=== PATIENT | female | born 1965 | race Caucasian/White ===

== ENCOUNTER 2016-06-30 10:22 | Emergency (ER) | payer OTHER ==
[~2016-06-30] VITALS: Ht 157.5 cm; Wt 68.8 kg
[~2016-06-30 10:22] MED LIST: ALPR-411 PO; BCPILLS PO; LVXUNK
[2016-06-30 10:41] VITALS: TEMP 36.6; Ht 157.5 cm; Wt 68.8 kg
[2016-06-30] MEDS ORDERED: FAMO20TA9 PO (11:05)
[2016-06-30] MEDS ORDERED: SERT50TA PO (11:05)
[2016-06-30] MEDS ORDERED: DICY20TA10 PO (11:05)
[2016-06-30] MEDS ORDERED: FLUT0.15 INH (11:05)
[2016-06-30] MEDS ORDERED: NUTRTAB40 PO (11:05)
[2016-06-30] MEDS ORDERED: TRAM-10 PO (11:05)
[2016-06-30] MEDS ORDERED: IBUP-1050 PO (11:05)
[2016-06-30] MEDS ORDERED: LEVO50TA PO (11:05)
[2016-06-30] MEDS ORDERED: RIFA150C15 PO (11:05)
[2016-06-30] MEDS ORDERED: OXYCODONE/ACETAMINOPHEN 5-325 TAB PO STA (11:16)
[2016-06-30 11:32] LABS: BASO % 0.4 %; BASO ABS # 0.02 K/uL (0-0.2); EOS % 0.6 %; HEMATOCRIT 35.7 % (37-47); IG% 0.4 %; LYMPH % 19.3 %; LYMPH ABS # 1.04 K/uL (1.2-3.4); MEAN CELL VOLUME 69.2 fL (80-100); MEAN CORPUSCULAR HEMOGLOBIN 21.1 pg (25-34); MEAN CORPUSCULAR HGB CONC 30.5 g/dl (32-36); MEAN PLATELET VOLUME 9.4 fL (7.4-10.4); MONO % 8.3 %; PLATELET COUNT 233 K/uL (130-400); RED BLOOD COUNT 5.16 M/uL (4.2-5.4)
[2016-06-30 11:46] LABS: ALT/SGPT 22 U/L (12-78); AST/SGOT 13 U/L (15-37); BLOOD UREA NITROGEN 16 mg/dl (7-18); BUN/CREATININE RATIO 22.2 (10-20); CALCIUM 9.2 mg/dl (8.5-10.1); CARBON DIOXIDE 29 mmol/L (21-32); CHLORIDE 107 mmol/L (98-107); CREATININE 0.73 mg/dl (0.60-1.20); GLUCOSE 124 mg/dl (70-99); POTASSIUM 3.8 mmol/L (3.5-5.1); SODIUM 141 mmol/L (136-145)
--- NOTE | 2016-06-30 11:54 | DIAGNOSTIC IMAGING REPORT ---
SINGLE VIEW CHEST CLINICAL HISTORY: Hypertension. FINDINGS: An AP, portable, upright chest radiograph is compared to study dated 02/04/2016. The examination is degraded by portable technique and patient rotation. The cardiomediastinal silhouette is unremarkable. Chronic interstitial thickening is similar to previous. The lungs and pleural spaces are clear. No pneumothorax is seen. The bony thorax is grossly intact. IMPRESSION: No active disease in the chest. Electronically signed by: Danilo Wall M.D. 06/30/2016 11:52 AM Dictated Date/Time: 06/30/2016 11:52 AM
[2016-06-30 11:56] LABS: ALKALINE PHOSPHATASE 77 U/L (45-117)
[2016-06-30 11:59] LABS: ANISOCYTOSIS PRESENT; COMPLETE YES; MICROCYTOSIS PRESENT
--- NOTE | 2016-06-30 12:05 | EMERGENCY ROOM VISIT NOTE ---
History First contact with patient: 11:00 Chief Complaint: HYPERTENSION Stated Complaint: HIGH BLOOD PRESSURE History of Present Illness The patient is a 51 year old female who presents to the Emergency Room with complaints of head pressure. The patient reports that over the past few days, she has noticed that her blood pressure has been higher than normal. 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 She states that she saw the chiropractor yesterday and they took her blood pressure, which was found to be elevated at 180/110. She reports that they did retake it and it had decreased to 160/110. She states that she took her blood pressure at home this morning and it was 147/ 95. She states that she retook it a few hours later and it was 178/112. The patient does not have a history of hypertension and states this is abnormal for her. However, she does report a history of high blood pressure readings after her . The patient states she has had headaches off and on but denies any headache at this time. She denies chest pain, but states that her heart "beats funny" once in a while. She states that she does have chronic low back pain and since flaring up it has been radiating into the left hip. She takes tramadol daily which is prescribed by her primary care provider. She has also been taking ibuprofen but states that these medications have not relieved the pain. The patient has a history of hypothyroidism and denies any other chronic medical conditions. She denies fevers/chills, recent illness, chest pain, shortness of breath, nausea, vomiting or abdominal pain. She denies any numbness or weakness in her extremities. Review of Systems A complete 10-point Review of Systems was discussed with the patient, with pertinent positives and negatives listed in the History of Present Illness. All remaining Review of Systems questions can be considered negative unless otherwise specified. Social History Smoking Status: Never Smoker Current/Historical Medications Scheduled Dicyclomine Hcl (Dicyclomine Hcl), 20 MG PO BID Famotidine (Pepcid), 1 TAB PO BID Fluticasone Propionate (Nasal) (Flonase Allergy Relief), 1 PUFF INH DAILY Levothyroxine Sodium (Synthroid), 1 TAB PO DAILY Methylprednisolone (Medrol Dosepak), 0 PO DAILY Nutritional Supplements (Estroven), 1 TAB PO DAILY Rifampin (Rifadin), 2 TABS PO DAILY Sertraline (Zoloft), 50 MG PO DAILY Scheduled PRN Alprazolam (Xanax), 0.5 MG PO TID PRN for Anxiety Hydrocodone/Acetaminophen 5MG/325MG (Solon 5MG/325MG), 1-2 TABLET PO Q4H PRN for Pain Ibuprofen (Advil), 200-600 MG PO Q4H PRN for Pain Tramadol (Ultram), 50 MG PO QAM PRN for Pain Allergies Coded Allergies: No Known Allergies (Unverified , 06/30/16) Physical Exam Vital Signs Date Time Temp Pulse Resp B/P Pulse Ox O2 Delivery O2 Flow Rate FiO2 06/30/16 12:26 77 16 114/85 98 Room Air 06/30/16 12:00 70 18 114/80 100 06/30/16 11:31 140/99 06/30/16 11:25 142/97 06/30/16 10:41 36.6 97 18 160/101 98 Room Air Physical Exam VITALS: Vitals are noted on the nurse's note and reviewed by myself. Vital signs stable. GENERAL: This is a 51-year-old female, in no acute distress, nondiaphoretic, well-developed well-nourished. HEAD: Normocephalic atraumatic. EARS: External auditory canals clear, tympanic membranes pearly manuel without erythema or effusion bilaterally. EYES: Pupils equal round and reactive to light and accommodation. Conjunctivae without injection, sclerae without icterus. Extraocular movements intact. MOUTH: Mucous membranes moist. Tonsils are not enlarged. Pharynx without erythema or exudate. NECK: Supple without nuchal rigidity. No lymphadenopathy. HEART: Regular rate and rhythm without murmurs gallops or rubs. LUNGS: Clear to auscultation bilaterally without wheezes, rales or rhonchi. MUSCULOSKELETAL: There is mild tenderness to palpation of the left lumbar paraspinous muscles. No muscle spasms palpable. Full range of motion of bilateral lower extremities. Strength 5/5. NEURO: Patient was alert and oriented to person place and time. Normal sensation to light and sharp touch. Medical Decision & Procedures ER Provider Diagnostic Interpretation: SINGLE VIEW CHEST FINDINGS: An AP, portable, upright chest radiograph is compared to study dated 02/04/2016. The examination is degraded by portable technique and patient rotation. The cardiomediastinal silhouette is unremarkable. Chronic interstitial thickening is similar to previous. The lungs and pleural spaces are clear. No pneumothorax is seen. The bony thorax is grossly intact. IMPRESSION: No active disease in the chest. Laboratory Results 06/30/16 11:20 Red Blood Count 5.16, Mean Corpuscular Volume 69.2, Mean Corpuscular Hemoglobin 21.1, Mean Corpuscular Hemoglobin Concent 30.5, Mean Platelet Volume 9.4, Neutrophils (%) (Auto) 71.0, Lymphocytes (%) (Auto) 19.3, Monocytes (%) (Auto) 8.3, Eosinophils (%) (Auto) 0.6, Basophils (%) (Auto) 0.4, Neutrophils # (Auto) 3.84, Lymphocytes # (Auto) 1.04, Monocytes # (Auto) 0.45, Eosinophils # (Auto) 0.03, Basophils # (Auto) 0.02 06/30/16 11:20 Test 06/30/16 11:20 White Blood Count 5.40 K/uL (4.8-10.8) Red Blood Count 5.16 M/uL (4.2-5.4) Hemoglobin 10.9 g/dL (12.0-16.0) Hematocrit 35.7 % (37-47) Mean Corpuscular Volume 69.2 fL (80-100) Mean Corpuscular Hemoglobin 21.1 pg (25-34) Mean Corpuscular Hemoglobin Concent 30.5 g/dl (32-36) Platelet Count 233 K/uL (130-400) Mean Platelet Volume 9.4 fL (7.4-10.4) Neutrophils (%) (Auto) 71.0 % Lymphocytes (%) (Auto) 19.3 % Monocytes (%) (Auto) 8.3 % Eosinophils (%) (Auto) 0.6 % Basophils (%) (Auto) 0.4 % Neutrophils # (Auto) 3.84 K/uL (1.4-6.5) Lymphocytes # (Auto) 1.04 K/uL (1.2-3.4) Monocytes # (Auto) 0.45 K/uL (0.11-0.59) Eosinophils # (Auto) 0.03 K/uL (0-0.5) Basophils # (Auto) 0.02 K/uL (0-0.2) RDW Standard Deviation 49.7 fL (36.4-46.3) RDW Coefficient of Variation 20.0 % (11.5-14.5) Immature Granulocyte % (Auto) 0.4 % Immature Granulocyte # (Auto) 0.02 K/uL (0.00-0.02) Anisocytosis PRESENT Microcytosis PRESENT Anion Gap 5.0 mmol/L (3-11) Est Creatinine Clear Calc Drug Dose 81.0 ml/min Estimated GFR () 109.0 Estimated GFR (Non- 94.0 BUN/Creatinine Ratio 22.2 (10-20) Calcium Level 9.2 mg/dl (8.5-10.1) Total Bilirubin 0.2 mg/dl (0.2-1) Aspartate Amino Transf (AST/SGOT) 13 U/L (15-37) Alanine Aminotransferase (ALT/SGPT) 22 U/L (12-78) Alkaline Phosphatase 77 U/L (45-117) Troponin I < 0.015 ng/ml (0-0.045) Total Protein 8.6 gm/dl (6.4-8.2) Albumin 4.2 gm/dl (3.4-5.0) Globulin 4.4 gm/dl (2.5-4.0) Albumin/Globulin Ratio 1.0 (0.9-2) Thyroid Stimulating Hormone (TSH) 16.300 uIu/ml (0.300-4.500) Medications Administered Medications (Trade) Dose Ordered Sig/Herlinda Route Start Time Stop Time Status Last Admin Dose Admin Oxycodone/ Acetaminophen (Percocet 5-325mg Tab) 1 tab NOW STAT PO 06/30/16 11:16 06/30/16 11:18 DC 06/30/16 11:32 1 TAB ECG Rate (beats per minute): 82 Rhythm: normal sinus Findings: no acute ischemic change, no ectopy Comparison ECG Date: no prior available Medical Decision Differential diagnosis includes hypertensive urgency, hypertensive emergency, acute exacerbation of chronic low back pain, anxiety, among others. The patient was evaluated as above. Labs were drawn and IV access was obtained. Imaging studies were performed and read by radiology as above. The patient was medicated with one tablet of Percocet for her back pain. The patient was reassessed multiple times during their stay in the emergency department and remained in stable condition. The patient is a 51-year-old female who presents today complaining of hypertension. The patient has had increased low back pain over the past few weeks. I do feel that her hypertension is likely secondary to anxiety and her back pain. Labs revealed no leukocytosis. There was a mild anemia and the patient was encouraged to follow up with her primary care provider regarding this. Patient's TSH was found to be elevated at 16. She may need her Synthroid adjusted and was encouraged to follow up with her PCP for this as well. EKG was unremarkable. Troponin was not elevated. The patient's blood pressure improved from 160/100 on arrival to 114/85 after treatment of her back pain. She will be treated as an outpatient with pain medication for her back pain. I did recommend that she follow-up closely for monitoring of her blood pressure. She will return here for any new symptoms or any symptoms. Based on the patient's presentation, lab results, and imaging studies, I feel the patient is stable for outpatient treatment. The patient's case was reviewed with Dr. Ott, ED attending physician, who agreed with my assessment and treatment plan. Discharge instructions were reviewed with the patient. The patient verbalized understanding of my assessment and treatment plan and was discharged home in good condition. [place] Drug Monitoring Program Search Results: patient reviewed within database, no issues identified Impression Primary Impression: Low back pain Departure Information Dispostion Home / Self-Care Condition GOOD Prescriptions Methylprednisolone (MEDROL DOSEPAK) 4 Mg Kiel 0 PO DAILY, #1 PKT Prov: Yeni Pinzon PA-C 06/30/16 Hydrocodone/Acetaminophen 5MG/325MG (Solon 5MG/325MG) Tab 1-2 TABLET PO Q4H Y for Pain, #10 TAB For Initial Treatment Prov: Yeni Pinzon PA-C 06/30/16 Referrals Vielka House D.O. (PCP) Patient Instructions My [facility] Additional Instructions You were evaluated in the emergency department today for high blood pressure and back pain. You have been prescribed Solon to be used for pain control. Take 1-2 tablets every 4-6 hours as needed for pain. This is a narcotic medication. You cannot drive or consume alcohol while on this medicine. This medicine should only be used for pain that cannot be controlled with [id number] pain medicines. You have been prescribed a Medrol Dosepak. This is a steroid which will help decrease the inflammation in your back. Take the medicine as prescribed. Take the ENTIRE 6 day course of the steroids. You were TSH was found to be elevated. This means that your thyroid hormone is low and you may need to have an adjustment of your levothyroxine. You should follow-up with your primary care provider for adjustment of this medication. Your red blood cell count was found to be slightly low today. You should follow -up with your primary care provider for further evaluation of this. Schedule an appointment with Dr. House within one week for further evaluation. Return to the emergency department with any worsening of your current symptoms are new/concerning symptoms. Problem Qualifiers Primary Impression: Low back pain
[2016-06-30 12:26] VITALS: BP 114/85; PULSE 77; O2SAT 98
[2016-06-30] MEDS ORDERED: HYDR-5688 PO (12:47)
[2016-06-30] MEDS ORDERED: METH4PAK PO (12:47)
== END 2016-06-30 12:56 | disposition home or self-care (01) ==
LOC: C.EDB 10:24 → C.EDC 12:56
DX: M54.5 Low back pain (principal); I10 Essential (primary) hypertension; E03.9 Hypothyroidism, unspecified

== ENCOUNTER 2019-10-12 15:56 | Observation (INO) ==
[2019-10-12] MEDS ORDERED: NITROGLYCERIN 2% OINTMENT 30GM TUBE EXT STA (16:13)
--- NOTE | 2019-10-12 16:19 | Emergency Department Note ---
History of Present Illness General Chief complaint: Chest Pain Stated complaint: CHEST PAIN Time Seen by Provider: 10/12/19 16:05 Source: patient Mode of arrival: EMS Limitations: no limitations History of Present Illness Provider complaint: Chest pain Onset (ago): hour(s) Location: chest Radiation: non-radiation Severity: moderate Pain Consistency: + constant Quality: + other (Tightness) Relieved By: + none Associated symptoms: + nausea/vomiting and + shortness of breath; no cough and no fever/chills Treatments prior to arrival: aspirin (Full dose) This is a 54-year-old female with a history of hypertension and high cholesterol presenting with chest discomfort starting at 2 PM today. The patient states that she was eating lunch and developed significant tightness in the middle of her chest. It did not radiate anywhere. It was associated with mild shortness of breath and nausea. She did throw up 3 times after which her symptoms seem to get better. She still has some discomfort to her chest which she now describes as more of a soreness. She did ride her bicycle with her earlier this morning and noted tingling in her hands but no chest discomfort. She does have a family history of coronary artery disease. Her mother had a heart attack at approximately her age although closer to 60. The patient does not smoke. She denies any leg swelling or pain, fever, cough or cold symptoms, abdominal pain, or known exposure to COVID-19. Home Medications Home Medications Medication Instructions Recorded Confirmed Type alprazolam [Xanax] 0.5 mg PO TID PRN 10/12/19 10/12/19 History atorvastatin [Lipitor] 20 mg PO HS 10/12/19 10/12/19 History buspirone 10 mg PO BID 10/12/19 10/12/19 History clonidine HCl [Catapres] 0.1 mg PO HS 10/12/19 10/12/19 History dicyclomine 20 mg PO TID PRN 10/12/19 10/12/19 History famotidine [Pepcid] 20 mg PO BID 10/12/19 10/12/19 History fluticasone propionate [Flonase 1 spray INTRANASAL DAILY 10/12/19 10/12/19 History Allergy Relief] levothyroxine [Synthroid] 75 mcg PO QAM 10/12/19 10/12/19 History sertraline [Zoloft] 25 mg PO DAILY 10/12/19 10/12/19 History sertraline [Zoloft] 50 mg PO DAILY 10/12/19 10/12/19 History tramadol [Ultram] 50 mg PO Q6H PRN 10/12/19 10/12/19 History Allergies Allergy/AdvReac Type Severity Reaction Status Date / Time No Known Allergies Allergy Unverified 10/12/19 17:18 Past Med/Surg History Medical History (Updated 10/12/19 @ 19:00 by Tisha Santoyo PA-C) Anxiety and depression Dyslipidemia (Chronic) GERD (gastroesophageal reflux disease) (Chronic) Hypertension (Chronic) Hypothyroidism (Chronic) IBS (irritable bowel syndrome) (Chronic) Low back pain (Chronic) Surgical History (Updated 10/12/19 @ 18:57 by Tisha Santoyo PA-C) H/O colonoscopy 05/2013 Family History (Updated 10/12/19 @ 18:57 by Tisha Santoyo PA-C) Mother Coronary heart disease Hypertension Grandfather (Paternal) Diabetes Stroke Social History (Updated 10/12/19 @ 18:58 by Tisha Santoyo PA-C) Preferred Language: Jordanian Communication Ability: Effective Production Planning Manager Required: No Beliefs That Will Affect Care: None Current Living Situation: Spouse Feels Safe at Home: Yes Safety Concerns: Feels Safe At This Time Smoking Status: Never smoker Hx Alcohol Use: No Hx Substance Use: No Review of Systems See HPI for pertinent positives & negatives. and A total of 10 systems reviewed and were otherwise negative Physical Exam Vital Signs Vital Signs - 24 hr 10/12/19 15:33 10/12/19 16:02 10/12/19 16:05 Temperature 36.9 C Temperature Source Oral Pulse Rate 83 77 79 Pulse Rate from SpO2 Sensor 78 81 Respiratory Rate 18 13 15 Respiratory Effort / Characteristics Non-Labored Spontaneous Respiratory Depth Normal Blood Pressure 157/87 H 157/87 H Blood Pressure Mean 110 108 Blood Pressure Position Sitting Pulse Oximetry 100 98 98 Oxygen Delivery Method Room Air Sepsis Recent Fever Within 48 Hours No Sepsis New/Unexplained Change in Mental Status No Sepsis Action Taken by Nursing No Action Required 10/12/19 16:10 10/12/19 16:13 10/12/19 16:33 Temperature Temperature Source Pulse Rate 78 80 Pulse Rate from SpO2 Sensor 82 Respiratory Rate 19 18 Respiratory Effort / Characteristics Respiratory Depth Blood Pressure Blood Pressure Mean Blood Pressure Position Pulse Oximetry 100 98 Oxygen Delivery Method Room Air Sepsis Recent Fever Within 48 Hours Sepsis New/Unexplained Change in Mental Status Sepsis Action Taken by Nursing 10/12/19 16:34 10/12/19 16:40 10/12/19 16:50 Temperature Temperature Source Pulse Rate 77 78 73 Pulse Rate from SpO2 Sensor 78 79 74 Respiratory Rate 17 18 23 Respiratory Effort / Characteristics Respiratory Depth Blood Pressure 136/86 Blood Pressure Mean 93 Blood Pressure Position Pulse Oximetry 96 92 99 Oxygen Delivery Method Sepsis Recent Fever Within 48 Hours Sepsis New/Unexplained Change in Mental Status Sepsis Action Taken by Nursing 10/12/19 17:00 10/12/19 17:10 10/12/19 17:20 Temperature Temperature Source Pulse Rate 80 78 Pulse Rate from SpO2 Sensor 79 78 79 Respiratory Rate 16 19 Respiratory Effort / Characteristics Respiratory Depth Blood Pressure Blood Pressure Mean Blood Pressure Position Pulse Oximetry 99 99 98 Oxygen Delivery Method Sepsis Recent Fever Within 48 Hours Sepsis New/Unexplained Change in Mental Status Sepsis Action Taken by Nursing 10/12/19 17:30 10/12/19 17:31 10/12/19 17:40 Temperature Temperature Source Pulse Rate 84 79 80 Pulse Rate from SpO2 Sensor 85 79 81 Respiratory Rate 20 17 17 Respiratory Effort / Characteristics Respiratory Depth Blood Pressure 132/83 Blood Pressure Mean 106 Blood Pressure Position Pulse Oximetry 99 99 95 Oxygen Delivery Method Sepsis Recent Fever Within 48 Hours Sepsis New/Unexplained Change in Mental Status Sepsis Action Taken by Nursing 10/12/19 17:50 10/12/19 18:00 10/12/19 18:01 Temperature Temperature Source Pulse Rate 78 88 87 Pulse Rate from SpO2 Sensor 82 90 86 Respiratory Rate 18 13 24 Respiratory Effort / Characteristics Respiratory Depth Blood Pressure 136/85 Blood Pressure Mean 104 Blood Pressure Position Pulse Oximetry 96 97 98 Oxygen Delivery Method Sepsis Recent Fever Within 48 Hours Sepsis New/Unexplained Change in Mental Status Sepsis Action Taken by Nursing 10/12/19 18:10 Temperature Temperature Source Pulse Rate 79 Pulse Rate from SpO2 Sensor 79 Respiratory Rate 14 Respiratory Effort / Characteristics Respiratory Depth Blood Pressure Blood Pressure Mean Blood Pressure Position Pulse Oximetry 98 Oxygen Delivery Method Sepsis Recent Fever Within 48 Hours Sepsis New/Unexplained Change in Mental Status Sepsis Action Taken by Nursing Constitutional: Vital signs reviewed. Eyes: Pupils are equal round reactive to light. Conjunctiva are noninjected. Left lazy eye. ENT: Pharynx is clear without erythema or exudate. Mucous membranes are moist. Neck supple without meningeal signs. Respiratory: Clear to auscultation bilaterally. Breath sounds are equal bilaterally. Cardiovascular: Regular rate and rhythm. No rubs or gallops. GI: Soft, nondistended and nontender. Bowel sounds are present. Musculoskeletal: No peripheral edema. No lower extremity tenderness. Integumentary: No cyanosis. or jaundice. Neurological: The patient is awake and alert. No focal deficits. Psychiatric: Anxious appearing. Course Administered Medications Atorvastatin Calcium (Lipitor) 20 mg PO HS INOCENCIA Stop: 11/11/19 20:59 Last Admin: 10/12/19 21:23 Dose: 20 mg Documented by: [id number] Buspirone HCl (Buspar) 10 mg PO BID INOCENCIA Stop: 11/11/19 20:59 Last Admin: 10/12/19 21:21 Dose: Not Given Documented by: [id number] Clonidine HCl (Catapres) 0.1 mg PO HS INOCENCIA Stop: 11/11/19 20:59 Last Admin: 10/12/19 21:23 Dose: 0.1 mg Documented by: [id number] Famotidine (Pepcid) 20 mg PO BID INOCENCIA Stop: 11/11/19 20:59 Last Admin: 10/12/19 21:22 Dose: Not Given Documented by: [id number] Discontinued Medications Acetaminophen (Tylenol) 1,000 mg PO NOW STA Stop: 10/12/19 19:09 Last Admin: 10/12/19 21:20 Dose: Not Given Documented by: [id number] Pantoprazole Sodium 40 mg/ (Syringe) 10 mls @ 5 mls/min IV NOW STA Stop: 10/12/19 19:35 Last Admin: 10/12/19 21:22 Dose: 5 mls/min Documented by: [id number] Nitroglycerin (Nitro-Bid 2%) 0.5 inch EXT NOW STA Stop: 10/12/19 16:14 Last Admin: 10/12/19 16:59 Dose: 0.5 inch Documented by: [id number] Medical Decision Making Differential Diagnosis Unstable angina, NH, panic attack, GERD, pleurisy, esophagitis Medical Records Attestation: I reviewed the patient's medical records. I did perform a limited focused review of portions of the patient's old chart on the electronic medical record. The patient has had no recent pertinent visits to this hospital. Home Medications Current Medication List: was personally reviewed by me Laboratory Data Attestation: I reviewed the patient's lab results. Result diagrams: 10/12/19 16:56 10/12/19 16:56 Lab Results 10/12/19 10/12/19 10/12/19 Range/Units 16:56 16:56 16:56 WBC 10.18 (4.8-10.8) K/uL RBC 5.26 (4.2-5.4) M/uL Hgb 16.3 H (12.0-16.0) g/dL Hct 49.0 H (37-47) % MCV 93.2 (80-100) fL MCH 31.0 (25-34) pg MCHC 33.3 (32-36) g/dL RDW Std Deviation 45.9 (36.4-46.3) fL RDW Coeff of Brandie 13.5 (11.5-14.5) % Plt Count 209 (130-400) K/uL MPV 10.8 H (7.4-10.4) fL Immature Gran % (Auto) 0.2 % Neut % (Auto) 81.5 % Lymph % (Auto) 10.1 % Elmore % (Auto) 7.3 % Eos % (Auto) 0.7 % Baso % (Auto) 0.2 % Neut # (Auto) 8.30 H (1.4-6.5) K/uL Lymph # (Auto) 1.03 L (1.2-3.4) K/uL Elmore # (Auto) 0.74 H (0.11-0.59) K/uL Eos # (Auto) 0.07 (0-0.5) K/uL Baso # (Auto) 0.02 (0-0.2) K/uL Immature Gran # (Auto) 0.02 (0.00-0.02) K/uL PT 10.6 (9.0-12.0) Seconds INR 1.0 (0.9-1.1) APTT 25.0 (21.0-31.0) Seconds PTT Ratio 0.9 Sodium 143 (136-145) mmol/L Potassium 3.8 (3.5-5.1) mmol/L Chloride 109 H (98-107) mmol/L Carbon Dioxide 26 (21-32) mmol/L Anion Gap 8.0 (3-11) BUN 20 H (7-18) mg/dl Creatinine 0.83 (0.6-1.2) mg/dl Est Cr Clr Drug Dosing 71.8 ml/min Est GFR ( Amer) 91.4 Est GFR (Non-Af Amer) 78.8 BUN/Creatinine Ratio 23.6 H (10-20) Glucose 107 H (70-99) mg/dl Calcium 9.2 (8.5-10.1) mg/dl Total Bilirubin 0.4 (0.2-1) mg/dl AST 19 (15-37) U/L ALT 28 (12-78) U/L Alkaline Phosphatase 93 (45-117) U/L Troponin I < 0.015 (0-0.045) ng/ml Total Protein 8.1 (6.4-8.2) gm/dl Albumin 3.9 (3.4-5.0) gm/dl Globulin 4.2 H (2.5-4.0) gm/dl Albumin/Globulin Ratio 0.9 (0.9-2) Lipase 76 (73-393) U/L TSH (0.300-4.500) uIu/ml 10/12/19 Range/Units 16:56 WBC (4.8-10.8) K/uL RBC (4.2-5.4) M/uL Hgb (12.0-16.0) g/dL Hct (37-47) % MCV (80-100) fL MCH (25-34) pg MCHC (32-36) g/dL RDW Std Deviation (36.4-46.3) fL RDW Coeff of Brandie (11.5-14.5) % Plt Count (130-400) K/uL MPV (7.4-10.4) fL Immature Gran % (Auto) % Neut % (Auto) % Lymph % (Auto) % Elmore % (Auto) % Eos % (Auto) % Baso % (Auto) % Neut # (Auto) (1.4-6.5) K/uL Lymph # (Auto) (1.2-3.4) K/uL Elmore # (Auto) (0.11-0.59) K/uL Eos # (Auto) (0-0.5) K/uL Baso # (Auto) (0-0.2) K/uL Immature Gran # (Auto) (0.00-0.02) K/uL PT (9.0-12.0) Seconds INR (0.9-1.1) APTT (21.0-31.0) Seconds PTT Ratio Sodium (136-145) mmol/L Potassium (3.5-5.1) mmol/L Chloride (98-107) mmol/L Carbon Dioxide (21-32) mmol/L Anion Gap (3-11) BUN (7-18) mg/dl Creatinine (0.6-1.2) mg/dl Est Cr Clr Drug Dosing ml/min Est GFR ( Amer) Est GFR (Non-Af Amer) BUN/Creatinine Ratio (10-20) Glucose (70-99) mg/dl Calcium (8.5-10.1) mg/dl Total Bilirubin (0.2-1) mg/dl AST (15-37) U/L ALT (12-78) U/L Alkaline Phosphatase (45-117) U/L Troponin I (0-0.045) ng/ml Total Protein (6.4-8.2) gm/dl Albumin (3.4-5.0) gm/dl Globulin (2.5-4.0) gm/dl Albumin/Globulin Ratio (0.9-2) Lipase (73-393) U/L TSH 4.900 H (0.300-4.500) uIu/ml Imaging Data Radiologist's Impression: XR chest 1V portable CLINICAL HISTORY: Atypical chest pain COMPARISON STUDY: 06/30/2016 FINDINGS: The cardiac and mediastinal contours are normal. There is no evidence of focal pulmonary consolidation. There is no evidence of failure. No pleural effusions are visualized.[ IMPRESSION: No active disease in the chest. ACT 112: Negative or not required by law. Electronically signed by: Justino Herrera M.D. 10/12/2019 4:24 PM ECG Data Attestation: I personally reviewed and interpreted this ECG as follows: Indication: + chest pain Rate (beats per minute): 81 Rhythm: + normal sinus ECG Intervals/blocks: no Left bundle branch block ECG ST segments: no ST depression and no ST elevation ECG Findings: no PVCs Blood Pressure Blood Pressure Findings: Elevated blood pressure Blood Pressure Disposition: further management by hospitalist MDM Narrative I did evaluate the patient as noted above. IV access was established. I did place an order for continuous cardiac monitoring. The monitor showed normal sinus rhythm with a rate of 80. I did order and personally review the patient's 12-lead EKG as described above. She has no evidence of acute ischemic changes. The patient did take a full dose aspirin prior to arrival. She was given nitroglycerin paste 1/2 inch to the anterior chest wall. I did order and personally reviewed the images of the patient's chest x-ray as described above. There is no evidence of acute process. I did order and review the patient's blood work as noted in the electronic medical record. CBC demonstrates elevation of her hemoglobin and hematocrit. Her white count is not elevated. Electrolytes are unremarkable. Troponin is negative. I did reevaluate the patient. She states that she is currently having no chest pain. I did discuss the test results with her and recommended hospitalization for repeat cardiac enzymes and possible stress testing tomorrow. I did discuss the case with the hospitalist and casework specialist. Impression & Plan Acute chest pain Discharge Plan Visit Data *Final* Discharge Date/Time: 10/12/19 19:11 Chief Complaint: Chest Pain Stated Complaint: CHEST PAIN ED Provider: Ted Banks Discharge Problem: Acute chest pain Patient Disposition: Admitted As Inpatient Discharge Instructions Interventions: ED Discharge Assessment Last Done: 10/12/19 19:11
--- NOTE | 2019-10-12 16:25 | XRay Report ---
XR chest 1V portable CLINICAL HISTORY: Atypical chest pain COMPARISON STUDY: 06/30/2016 FINDINGS: The cardiac and mediastinal contours are normal. There is no evidence of focal pulmonary co nsolidation. There is no evidence of failure. No pleural effusions are visualized.[ IMPRESSION: No active disease in the chest. ACT 112: Negative or not required by law. Electronically signed by: Justino Herrera M.D. 10/12/2019 4:24 PM
[2019-10-12 17:23] LABS: Basophils # (auto) 0.02 K/uL (0-0.2); Basophils % (auto) 0.2 %; Eosinophils # (auto) 0.07 K/uL (0-0.5); Eosinophils % (auto) 0.7 %; Hemoglobin 16.3 g/dL (12.0-16.0); Immature Granulocytes # (auto) 0.02 K/uL (0.00-0.02); Immature Granulocytes % (auto) 0.2 %; Lymphocytes # (auto) 1.03 K/uL (1.2-3.4); Lymphocytes % (auto) 10.1 %; Mean Corpuscular Hgb Conc 33.3 g/dL (32-36); Mean Corpuscular Volume 93.2 fL (80-100); Mean Platelet Volume 10.8 fL (7.4-10.4); Monocytes # (auto) 0.74 K/uL (0.11-0.59); Monocytes % (auto) 7.3 %; Neutrophils % (auto) 81.5 %; Platelet Count 209 K/uL (130-400); RDW Coefficient of Variation 13.5 % (11.5-14.5); RDW Standard Deviation 45.9 fL (36.4-46.3); Red Blood Count 5.26 M/uL (4.2-5.4); White Blood Count 10.18 K/uL (4.8-10.8)
[2019-10-12 17:38] LABS: Partial Thromboplastin Ratio 0.9; Prothrombin Time 10.6 Seconds (9.0-12.0)
[2019-10-12 17:41] LABS: Alanine Aminotransferase 28 U/L (12-78); Albumin Level 3.9 gm/dl (3.4-5.0); Aspartate Aminotransferase 19 U/L (15-37); BUN Creatinine Ratio 23.6 (10-20); Blood Urea Nitrogen 20 mg/dl (7-18); Calcium 9.2 mg/dl (8.5-10.1); Carbon Dioxide 26 mmol/L (21-32); Chloride 109 mmol/L (98-107); Creatinine Clr Calc Pharmacy 71.8 ml/min; Est GFR (African American) 91.4; Est GFR (Non-African American) 78.8; Glucose 107 mg/dl (70-99); Lipase 76 U/L (73-393); Potassium 3.8 mmol/L (3.5-5.1); Sodium 143 mmol/L (136-145)
[2019-10-12 17:46] LABS: Albumin Globulin Ratio 0.9 (0.9-2); Alkaline Phosphatase 93 U/L (45-117); Bilirubin,Total 0.4 mg/dl (0.2-1); Globulin 4.2 gm/dl (2.5-4.0); Total Protein 8.1 gm/dl (6.4-8.2); Troponin I < 0.015 ng/ml (0-0.045)
--- NOTE | 2019-10-12 18:45 | History & Physical Report ---
Date of Service October 12, 2019 Assessment & Plan (1) Chest pain: Pt is 54 y/o F with PMH HTN, dyslipidemia, hypothyroidism, anxiety, depression, chronic back pain, GERD presented to ER with complaint of chest pain today. Patient states this afternoon was eating lunch when she developed pain sensation substernal region described as spasming/tightness sensation followed by vomiting with relief of pain In ER pt afebrile, P: 83, R: 18, BP: 157/87, 100% on RA. No leukocytosis, initial troponin negative, normal LFTs, normal lipase, EKG sinus rhythm without acute ST changes -Pt took 325mg aspirin prior to arrival -In ER nitropaste 0.5" placed -Pt without current CP -R/O ACS. Risk factors: HTN, hyperlipidemia, obesity. -DDX: esophageal spasm, GERD, more suspicion for esophageal spasm with pt's description of symptoms -Monitor Vitals -Repeat EKG in am -Will trend troponin -NPO midnight -exercise stress echo in am -lipid panel in am, continue statin -aspirin -Will remove nitropaste now -Nitro prn CP and repeat EKG for CP -Will start Protonix (2) Hypertension: BP Stable -On clonidine for reported BP and anxiety, continue (3) Dyslipidemia: -continue atorvastatin (4) Hypothyroidism: TSH pending -Continue levothyroxine (5) GERD (gastroesophageal reflux disease): -Will start protonix (6) Anxiety and depression: -Continue buspirone, clonidine, alprazolam prn DVT Prophylaxis -SCDs Full Code Follows with Dr Vielka Carbajal for routine care Pt was seen and care coordinated with Dr Nicole. See addendum History of Present Illness Chief Complaint: CP Primary Care Provider: Vielka House DO Pt is 54 y/o F with PMH HTN, dyslipidemia, hypothyroidism, anxiety, depression, chronic back pain, GERD presented to ER with complaint of chest pain today. Patient states this afternoon was eating lunch when she developed pain sensation substernal region described as spasming/tightness sensation. Patient states symptoms lasted approximately 1 minute. Patient states she got anxious when this happened and felt a little short of breath. Patient states vomited and then chest discomfort resolved. Recurred a couple of minutes later also lasting 1 minute followed by vomiting relieving symptoms. This occurred a total of 3 times. Pt states chewed 325mg aspirin this afternoon after symptoms started. Since patient states has little irritation sensation to chest but no spasming or tightness. She reports history reflux symptoms in past. States also has intermittent episodes where she has some discomfort substernal region feeling like foods are not passing easily. Denies any choking or known food bolus. Patient states 2 weeks ago started bicycling has been out once 2 weeks ago for approximately 30 minutes and today bicycle for approximately an hour. Denies any shortness of breath, chest pain, dizziness with bicycling. Did have some tingling/numbness of hands while bicycling resolved after got off her bike. Denies any personal history known CAD. Reports history of murmur. Family history: Mother [place] age late 50s early 60s. Chronic nasal congestion in the mornings. Denies fever/chills, diaphoresis, diarrhea, constipation, ACEVES, dizziness, syncope, vision changes, neck pain, orthopnea, palpitations, cough, sore throat, choking, otalgia, abdominal pain, weakness, extremity weakness, extremity edema, rashes, urinary symptoms. Allergies Allergy/AdvReac Type Severity Reaction Status Date / Time No Known Allergies Allergy Unverified 10/12/19 17:18 Home Medications Home Medications Medication Instructions Recorded Confirmed Type alprazolam [Xanax] 0.5 mg PO TID PRN 10/12/19 10/12/19 History atorvastatin [Lipitor] 20 mg PO HS 10/12/19 10/12/19 History buspirone 10 mg PO BID 10/12/19 10/12/19 History clonidine HCl [Catapres] 0.1 mg PO HS 10/12/19 10/12/19 History dicyclomine 20 mg PO TID PRN 10/12/19 10/12/19 History famotidine [Pepcid] 20 mg PO BID 10/12/19 10/12/19 History fluticasone propionate [Flonase 1 spray INTRANASAL DAILY 10/12/19 10/12/19 History Allergy Relief] levothyroxine [Synthroid] 75 mcg PO QAM 10/12/19 10/12/19 History sertraline [Zoloft] 25 mg PO DAILY 10/12/19 10/12/19 History sertraline [Zoloft] 50 mg PO DAILY 10/12/19 10/12/19 History tramadol [Ultram] 50 mg PO Q6H PRN 10/12/19 10/12/19 History Past Med/Surg History Medical History (Updated 10/12/19 @ 19:00 by Tisha Santoyo PA-C) Anxiety and depression Dyslipidemia (Chronic) GERD (gastroesophageal reflux disease) (Chronic) Hypertension (Chronic) Hypothyroidism (Chronic) IBS (irritable bowel syndrome) (Chronic) Low back pain (Chronic) Surgical History (Updated 10/12/19 @ 18:57 by Tisha Santoyo PA-C) H/O colonoscopy 05/2013 Family History (Updated 10/12/19 @ 18:57 by Tisha Santoyo PA-C) Mother Coronary heart disease Hypertension Grandfather (Paternal) Diabetes Stroke Social History (Updated 10/12/19 @ 18:58 by Tisha Santoyo PA-C) Preferred Language: Chilean Communication Ability: Effective Tools Developer Required: No Beliefs That Will Affect Care: None Current Living Situation: Spouse Feels Safe at Home: Yes Safety Concerns: Feels Safe At This Time Smoking Status: Never smoker Hx Alcohol Use: No Hx Substance Use: No Review of Systems Review of Systems: All systems reviewed & are unremarkable except as noted in HPI & below Physical Exam Physical Exam: General: no distress, overweight Head: normocephalic, atraumatic Eyes: conjunctiva non-injected, anicteric ENT: normal inspection external ears, nose, mucous membranes moist Neck: supple, trachea midline Lungs: clear, no respiratory distress, no wheezing/rhonchi/rales CV: RRR, + murmur, no pretibial edema, chest wall non-tender to palpation Abd: normal BS, soft, non-tender Ext: no cyanosis, no calf tenderness Neuro: A&O x 3, no focal deficits noted, normal affect Skin: warm, dry Results & Data Results & Data ([facility]) Vital Signs (Past 12 Hours) Vital Signs Temp Pulse Resp BP Pulse Ox 10/12/19 18:20 77 18 99 10/12/19 18:10 79 14 98 10/12/19 18:01 87 24 136/85 98 10/12/19 18:00 88 13 97 10/12/19 17:50 78 18 96 10/12/19 17:40 80 17 95 10/12/19 17:31 79 17 99 10/12/19 17:30 84 20 132/83 99 10/12/19 17:20 78 19 98 10/12/19 17:10 80 16 99 10/12/19 17:00 99 10/12/19 16:50 73 23 99 10/12/19 16:40 78 18 92 10/12/19 16:34 77 17 136/86 96 10/12/19 16:33 80 18 10/12/19 16:13 98 10/12/19 16:10 78 19 100 10/12/19 16:05 79 15 98 10/12/19 16:02 77 13 157/87 H 98 10/12/19 15:33 36.9 C 83 18 157/87 H 100 Laboratory Results Short CBC 10/12/19 Range/Units 16:56 WBC 10.18 (4.8-10.8) K/uL Hgb 16.3 H (12.0-16.0) g/dL Hct 49.0 H (37-47) % Plt Count 209 (130-400) K/uL BMP 10/12/19 16:56 Sodium 143 Potassium 3.8 Chloride 109 H Carbon Dioxide 26 BUN 20 H Creatinine 0.83 Glucose 107 H Calcium 9.2 Cardiac Enzymes 10/12/19 Range/Units 16:56 Troponin I < 0.015 (0-0.045) ng/ml Liver Function 10/12/19 Range/Units 16:56 Total Bilirubin 0.4 (0.2-1) mg/dl AST 19 (15-37) U/L ALT 28 (12-78) U/L Alkaline Phosphatase 93 (45-117) U/L Albumin 3.9 (3.4-5.0) gm/dl Diagnostic Findings CXR: IMPRESSION: No active disease in the chest. ECG Rate (beats per minute): 81 Rhythm: sinus rhythm Code Status & VTE Plan VTE Prophylaxis Plan VTE Prophylaxis will be ordered: Yes Supervising Physician Co-Signing Physician Notes Attending Addendum: The patient was seen and examined in ER Admitted with epigastric/lower central chest pain, nonexertional and associated with nausea Has history of reflux but no history of significant ischemic heart disease in the family No more pain during my examination On examination She was not in any acute distress Hemodynamically stable Chest-clear to auscultate bilaterally Heart-S1-S2 with a 2/6 systolic murmur over precordium Abdomen-benign Extremity-negative for any Her admission labs and EKG with imaging studies reviewed No significant EKG changes, initial troponin negative Her symptoms could be secondary to reflux but will admit and get a stress echo tomorrow Agree with assessment and plan as outlined above by HALEY Marroquin Dr
[2019-10-12] MEDS ORDERED: ACETAMINOPHEN 500 MG TAB PO STA (19:08)
[2019-10-12] MEDS ORDERED: TRAMADOL HCL 50 MG TABLET PO PRN (19:27)
[2019-10-12] MEDS ORDERED: DICYCLOMINE HCL 20 MG TAB PO PRN (19:27)
[2019-10-12] MEDS ORDERED: ACETAMINOPHEN 325 MG TAB PO PRN (19:27)
[2019-10-12] MEDS ORDERED: ALPRAZolam 0.5 MG TABLET PO PRN (19:27)
[2019-10-12] MEDS ORDERED: NITROGLYCERIN SL 0.4 MG/TAB TAB SL PRN (19:27)
[2019-10-12] MEDS ORDERED: PANTOprazole 40 MG in SYRINGE 0 ML IV STA (19:34)
[2019-10-12] MEDS ORDERED: ATORVASTATIN 20 MG TAB PO SCH (21:00)
[2019-10-12] MEDS ORDERED: cloNIDine HCL 0.1 MG TAB PO SCH (21:00)
[2019-10-12] MEDS: FAMOTIDINE 20 MG TAB PO SCH (21:22)
[2019-10-13 06:20] LABS: Hematocrit (blood only) 46.7 % (37-47); Hemoglobin 15.5 g/dL (12.0-16.0); Mean Corpuscular Hemoglobin 30.9 pg (25-34); Mean Corpuscular Hgb Conc 33.2 g/dL (32-36); Mean Platelet Volume 10.5 fL (7.4-10.4); Platelet Count 181 K/uL (130-400); RDW Coefficient of Variation 13.8 % (11.5-14.5); RDW Standard Deviation 46.8 fL (36.4-46.3); Red Blood Count 5.02 M/uL (4.2-5.4); White Blood Count 6.47 K/uL (4.8-10.8)
[2019-10-13] MEDS ORDERED: LEVOTHYROXINE SODIUM 75 MCG TABLET PO SCH (06:30)
[2019-10-13 06:52] LABS: BUN Creatinine Ratio 25.3 (10-20); Blood Urea Nitrogen 17 mg/dl (7-18); Calcium 9.1 mg/dl (8.5-10.1); Carbon Dioxide 23 mmol/L (21-32); Chloride 113 mmol/L (98-107); Creatinine Clr Calc Pharmacy 85.6 ml/min; Est GFR (African American) 112.8; Est GFR (Non-African American) 97.3; Glucose 94 mg/dl (70-99); Magnesium 2.2 mg/dl (1.8-2.4); Potassium 3.9 mmol/L (3.5-5.1); Sodium 143 mmol/L (136-145)
[2019-10-13 06:58] LABS: Chol HDL Ratio 3; Cholesterol 141 mg/dl (0-200); HDL Cholesterol 53 mg/dl; LDL Cholesterol Calculated 69 mg/dl; Triglycerides 93 mg/dl (0-150); Troponin I < 0.015 ng/ml (0-0.045); VLDL Cholesterol 19 mg/dl
[2019-10-13] MEDS: FAMOTIDINE 20 MG TAB PO SCH (07:27)
[2019-10-13] MEDS ORDERED: PANTOprazole 40 MG TAB PO SCH (09:00)
[2019-10-13] MEDS ORDERED: SERTRALINE HCL 50 MG TABLET PO SCH ×3 (09:00)
[2019-10-13] MEDS ORDERED: FLUTICASONE PROPIONATE NA SPR 16 GM BTL NAE SCH (09:00)
[2019-10-13] MEDS ORDERED: ASPIRIN 81 MG ECTAB PO SCH (09:00)
--- NOTE | 2019-10-13 12:29 | Hospitalist Progress Note ---
Date of Service October 13, 2019 Assessment & Plan (1) Chest pain: Pt is 54 y/o F with PMH HTN, dyslipidemia, hypothyroidism, anxiety, depression, chronic back pain, GERD presented to ER with complaint of chest pain today. Patient states this afternoon was eating lunch when she developed pain sensation substernal region described as spasming/tightness sensation followed by vomiting with relief of pain Denies any more chest pain, Serial cardiac enzymes and EKGs were unremarkable for any ACS Status post exercise stress echo which is normal The symptoms are seems to be GI origin Will give Protonix 40 mg once a day Advised to have a referral to GI through the PCP Questionable problem with swallowing at times Food seems to be stacking lower esophageal area Without any overt symptoms right now Has reflux disease She was advised to get a referral to GI through the PCP She will be given Protonix 40 mg once a day (2) Hypertension: BP Stable -On clonidine for reported BP and anxiety, continue (3) Dyslipidemia: -continue atorvastatin (4) Hypothyroidism: TSH pending -Continue levothyroxine (5) GERD (gastroesophageal reflux disease): -Will start protonix (6) Anxiety and depression: -Continue buspirone, clonidine, alprazolam prn DVT Prophylaxis -SCDs Full Code Follows with Dr Vielka Carbajal for routine care Discharge home today Admission and Anticipated Discharge Date Admission Date: October 12, 2019 Subjective The patient was seen and examined in medical telemetry unit She has been ruled out for ACS and has had negative stress echo Her symptoms seems to be from GI origin She will be discharged this afternoon Review of Systems Review of Systems: All systems reviewed and are unremarkable except as noted below Physical Exam Physical Exam: Sitting at the edge of the bed without any acute symptoms Constitutional: well developed, well nourished and + obese; no acute distress and not ill appearing Eyes: PERRL, conjunctivae normal, anicteric sclerae ENMT: external ear and nose normal, oropharynx normal Neck: trachea midline, no thyromegaly Respiratory: normal respiratory effort; no respiratory distress Auscultation: lungs clear to auscultation bilaterally Cardiovascular: Rate/Rhythm: regular rate and regular rhythm Heart Sounds: no murmur Gastrointestinal (Abdomen): Inspection/Auscultation: abdomen normal to inspection; abdomen not distended Percussion/Palpation: abdomen soft; abdomen nontender Complains to have occasional problem with swallowing Musculoskeletal: No acute arthritis involving any joints Neurologic: moves all extremities; no focal motor deficits Alert, awake and oriented x3 Results & Data Results & Data ([facility]) Vital Signs (Past 12 Hours) Vital Signs Temp Pulse Pulse Resp BP Pulse Ox 10/13/19 11:59 36.4 C L 68 20 146/91 H 97 10/13/19 07:20 36.7 C 66 18 136/82 97 10/13/19 03:28 36.5 C 59 L 18 113/76 100 10/13/19 00:51 61 10/13/19 00:50 93 H Laboratory Results Short CBC 10/12/19 10/13/19 Range/Units 16:56 06:06 WBC 10.18 6.47 (4.8-10.8) K/uL Hgb 16.3 H 15.5 (12.0-16.0) g/dL Hct 49.0 H 46.7 (37-47) % Plt Count 209 181 (130-400) K/uL BMP 10/12/19 10/13/19 16:56 06:06 Sodium 143 143 Potassium 3.8 3.9 Chloride 109 H 113 H Carbon Dioxide 26 23 BUN 20 H 17 Creatinine 0.83 0.69 Glucose 107 H 94 Calcium 9.2 9.1 Cardiac Enzymes 10/12/19 10/12/19 10/13/19 Range/Units 16:56 22:55 06:06 Troponin I < 0.015 < 0.015 < 0.015 (0-0.045) ng/ml Liver Function 10/12/19 Range/Units 16:56 Total Bilirubin 0.4 (0.2-1) mg/dl AST 19 (15-37) U/L ALT 28 (12-78) U/L Alkaline Phosphatase 93 (45-117) U/L Albumin 3.9 (3.4-5.0) gm/dl Medications Administered Current Inpatient Medications Acetaminophen (Tylenol) 650 mg PO Q4H PRN PRN Reason: Pain or Fever Stop: 11/11/19 19:26 Alprazolam (Xanax) 0.5 mg PO TID PRN PRN Reason: Anxiety Stop: 11/11/19 19:26 Aspirin (Ecotrin Ectab) 81 mg PO DAILY INOCENCIA Stop: 11/12/19 08:59 Last Admin: 10/13/19 07:28 Dose: 81 mg Documented by: Atorvastatin Calcium (Lipitor) 20 mg PO HS [facility], [facility]1983 Stop: 11/11/19 20:59 Last Admin: 10/12/19 21:23 Dose: 20 mg Documented by: Buspirone HCl (Buspar) 10 mg PO BID INOCENCIA Stop: 11/11/19 20:59 Last Admin: 10/13/19 07:28 Dose: 10 mg Documented by: Clonidine HCl (Catapres) 0.1 mg PO HS [facility], [facility]1983 Stop: 11/11/19 20:59 Last Admin: 10/12/19 21:23 Dose: 0.1 mg Documented by: Dicyclomine HCl (Bentyl) 20 mg PO TID PRN PRN Reason: Abdominal Pain Stop: 11/11/19 19:26 Famotidine (Pepcid) 20 mg PO BID [facility], [facility]1983 Stop: 11/11/19 20:59 Last Admin: 10/13/19 07:27 Dose: 20 mg Documented by: Fluticasone Propionate (Flonase) 1 sprays SERA DAILY [facility], [facility]–1983 Stop: 11/12/19 08:59 Last Admin: 10/13/19 07:28 Dose: 1 sprays Documented by: Levothyroxine Sodium (Synthroid) 75 mcg PO DAILYBB [facility], 1928–1983 Stop: 11/12/19 06:29 Last Admin: 10/13/19 05:48 Dose: 75 mcg Documented by: Nitroglycerin (Nitrostat) 0.4 mg SL UD PRN PRN Reason: Chest Pain Stop: 11/11/19 19:26 Pantoprazole Sodium (Protonix) 40 mg PO DAILY INOCENCIA Stop: 11/12/19 08:59 Last Admin: 10/13/19 07:28 Dose: 40 mg Documented by: Sertraline HCl (Zoloft) 75 mg PO QAM INOCENCIA Stop: 11/12/19 08:59 Last Admin: 10/13/19 07:29 Dose: 75 mg Documented by: Tramadol HCl (Ultram) 50 mg PO Q6H PRN PRN Reason: Pain Stop: 11/11/19 19:26 Last Admin: 10/13/19 11:47 Dose: 50 mg Documented by:
--- NOTE | 2019-10-13 14:14 | Electrocardiogram Report ---
Test Reason : Blood Pressure : / mmHG Vent. Rate : 081 BPM Atrial Rate : 081 BPM P-R Int : 162 ms QRS Dur : 076 ms QT Int : 376 ms P-R-T Axes : 020 021 013 degrees QTc Int : 436 ms Normal sinus rhythm Normal ECG When compared with ECG of 30-JUN-2016 11:23, Nonspecific T wave abnormality now evident in Inferior leads Confirmed by Fede Sanchez ([id number]) on 10/13/2019 2:14:17 PM Referred By: REFERRED SELF Confirmed By:Nicholas Sanchez
--- NOTE | 2019-10-13 14:22 | Electrocardiogram Report ---
Test Reason : Blood Pressure : / mmHG Vent. Rate : 063 BPM Atrial Rate : 063 BPM P-R Int : 176 ms QRS Dur : 080 ms QT Int : 420 ms P-R-T Axes : 032 043 072 degrees QTc Int : 429 ms Normal sinus rhythm Low voltage QRS Borderline ECG When compared with ECG of 12-OCT-2019 16:12, (unconfirmed) No significant change was found Confirmed by Fede Sanchez ([id number]) on 10/13/2019 2:22:49 PM Referred By: REFERRED SELF Confirmed By:Nicholas Sanchez
--- NOTE | 2019-10-14 07:18 | Discharge Summary ---
Date of Service October 14, 2019 Admission HPI Per Admitting Provider Pt is 54 y/o F with PMH HTN, dyslipidemia, hypothyroidism, anxiety, depression, chronic back pain, GERD presented to ER with complaint of chest pain today. Patient states this afternoon was eating lunch when she developed pain sensation substernal region described as spasming/tightness sensation. Patient states symptoms lasted approximately 1 minute. Patient states she got anxious when this happened and felt a little short of breath. Patient states vomited and then chest discomfort resolved. Recurred a couple of minutes later also lasting 1 minute followed by vomiting relieving symptoms. This occurred a total of 3 times. Pt states chewed 325mg aspirin this afternoon after symptoms started. Since patient states has little irritation sensation to chest but no spasming or tightness. She reports history reflux symptoms in past. States also has intermittent episodes where she has some discomfort substernal region feeling like foods are not passing easily. Denies any choking or known food bolus. Patient states 2 weeks ago started bicycling has been out once 2 weeks ago for approximately 30 minutes and today bicycle for approximately an hour. Denies any shortness of breath, chest pain, dizziness with bicycling. Did have some tingling/numbness of hands while bicycling resolved after got off her bike. Denies any personal history known CAD. Reports history of murmur. Family history: Mother [place] age late 50s early 60s. Chronic nasal congestion in the mornings. Denies fever/chills, diaphoresis, diarrhea, constipation, ACEVES, dizziness, syncope, vision changes, neck pain, orthopnea, palpitations, cough, sore throat, choking, otalgia, abdominal pain, weakness, extremity weakness, extremity edema, rashes, urinary symptoms. Admission Exam Per Admitting Provider Physical Exam: General: no distress, overweight Head: normocephalic, atraumatic Eyes: conjunctiva non-injected, anicteric ENT: normal inspection external ears, nose, mucous membranes moist Neck: supple, trachea midline Lungs: clear, no respiratory distress, no wheezing/rhonchi/rales CV: RRR, + murmur, no pretibial edema, chest wall non-tender to palpation Abd: normal BS, soft, non-tender Ext: no cyanosis, no calf tenderness Neuro: A&O x 3, no focal deficits noted, normal affect Skin: warm, dry Principal Diagnosis Chest painruled out for ACS, negative exercise stress echo. Peptic ulcer disease/esophageal reflux Discharge Exam Constitutional well developed, well nourished and + obese; no acute distress and not ill appearing Eyes PERRL, conjunctivae normal, anicteric sclerae ENMT external ear and nose normal, oropharynx normal Neck trachea midline, no thyromegaly Respiratory normal respiratory effort; no respiratory distress Auscultation: lungs clear to auscultation bilaterally Cardiovascular Rate/Rhythm: regular rate and regular rhythm Heart Sounds: no murmur Gastrointestinal (Abdomen) Inspection/Auscultation: abdomen normal to inspection; abdomen not distended Percussion/Palpation: abdomen soft; abdomen nontender Neurologic moves all extremities; no focal motor deficits Discharge Data Allergies Allergy/AdvReac Type Severity Reaction Status Date / Time No Known Allergies Allergy Unverified 10/12/19 17:18 Consultations 10/12/19 17:56 ED Decision to Admit Stat Hospital Course (1) Chest pain: Pt is 54 y/o F with PMH HTN, dyslipidemia, hypothyroidism, anxiety, depression, chronic back pain, GERD presented to ER with complaint of chest pain today. Patient states this afternoon was eating lunch when she developed pain sensation substernal region described as spasming/tightness sensation followed by vomiting with relief of pain Denies any more chest pain, Serial cardiac enzymes and EKGs were unremarkable for any ACS Status post exercise stress echo which is normal The symptoms are seems to be GI origin Will give Protonix 40 mg once a day Advised to have a referral to GI through the PCP Questionable problem with swallowing at times Food seems to be stacking lower esophageal area Without any overt symptoms right now Has reflux disease She was advised to get a referral to GI through the PCP She will be given Protonix 40 mg once a day (2) Hypertension: BP Stable -On clonidine for reported BP and anxiety, continue (3) Dyslipidemia: -continue atorvastatin (4) Hypothyroidism: TSH pending -Continue levothyroxine (5) GERD (gastroesophageal reflux disease): -Will start protonix (6) Anxiety and depression: -Continue buspirone, clonidine, alprazolam prn DVT Prophylaxis -SCDs Full Code Follows with Dr Vielka Carbajal for routine care Discharge home today Total Time Total Time Spent Total Time Spent (In Minutes): 35 minutes Total Time Includes: Examination of the Patient, Discharge Planning, Medication Reconciliation and Communication With Other Providers Discharge Plan Discharge Items Patient Disposition: Home - Self-Care Reason For Visit: CP Discharge Diagnosis: Chest painruled out for ACS, negative exercise stress echo. Peptic ulcer disease/esophageal reflux Condition on Discharge: Good Activity: Resume your previous activity Non-emergency contact: Primary Care Provider Call non-emergency contact if: you have any medication questions and your symptoms worsen Follow-up/Referrals: Vielka House DO [Primary Care Provider] - 10/17/19 12:00 pm (10/17/2019 12:00 PM Provider Gabriela Turner DO [facility] ) Diet: Heart Healthy Addtl Attending Provider Instructions: Please try Protonix for the reflux Pending Studies at Discharge: No Stand-Alone Forms: [employer], Work/School Release (Inpt), Smoking Cessation Medications and DC Order Prescriptions: New pantoprazole [Protonix] 40 mg tablet,delayed release (DR/EC) 40 mg PO DAILY Qty: 30 RF: 0 Continued clonidine HCl [Catapres] 0.1 mg tablet 0.1 mg PO HS RF: 0 atorvastatin [Lipitor] 20 mg tablet 20 mg PO HS RF: 0 tramadol [Ultram] 50 mg tablet 50 mg PO Q6H PRN (Reason: Pain) RF: 0 levothyroxine [Synthroid] 75 mcg tablet 75 mcg PO QAM RF: 0 alprazolam [Xanax] 0.5 mg tablet 0.5 mg PO TID PRN (Reason: Anxiety) RF: 0 dicyclomine 20 mg tablet 20 mg PO TID PRN (Reason: Abdominal Pain) RF: 0 buspirone 10 mg tablet 10 mg PO BID RF: 0 sertraline [Zoloft] 25 mg tablet 25 mg PO DAILY RF: 0 fluticasone propionate [Flonase Allergy Relief] 50 mcg/actuation [place],Suspension 1 spray INTRANASAL DAILY RF: 0 sertraline [Zoloft] 50 mg tablet 50 mg PO DAILY RF: 0 Discontinued famotidine [Pepcid] 20 mg Tablet 20 mg PO BID RF: 0 Discharge Orders: Discharge Order (Routine); Ordered 10/13/19 Ordered By: Herminia Nicole Admission Data Admit Date/Time: 10/12/19 18:12 Attending Provider: Herminia Nicole Admit Provider: Herminia Nicole Primary Care Provider: Vielka House Other Providers: Herminia Nicole Other Interventions: Discharge Summary Assessment (RN) Last Done: 10/13/19 12:37 DC Date/Time DO NOT enter until pt leaves facility: 10/13/19 13:35
== END 2019-10-13 13:35 | disposition home or self-care (01) ==
LOC: 2W 15:56 → ED 15:56 → 2W 19:11

== ENCOUNTER 2025-03-18 06:45 | Observation (INO) ==
--- NOTE | 2025-02-13 11:58 | PAT Medication Instructions ---
Medication Instructions Date of Service February 13, 2025 Home Medications atorvastatin 20 mg tablet (Lipitor) 20 mg PO HS buspirone 10 mg tablet 10 mg PO QAM clonidine HCl 0.1 mg tablet (Catapres) 0.1 mg PO HS fluticasone propionate 50 mcg/actuation nasal spray,suspension (Flonase Allergy Relief) 1 spray intranasal BID sertraline 50 mg tablet (Zoloft) 50 mg PO QAM tramadol 50 mg tablet (Ultram) 50 mg PO BID Pain acetaminophen 500 mg capsule 1,000 mg PO TID celecoxib 200 mg capsule (Celebrex) 200 mg PO QAM clindamycin phosphate 1 % lotion 1 applic topical DAILY PRN Skin Irritation levothyroxine 88 mcg tablet 88 mcg PO QAM metoprolol succinate 25 mg tablet,extended release 24 hr 25 mg PO QAM multivitamin 1 tab PO DAILY pantoprazole 20 mg tablet,delayed release 20 mg PO QAM triamcinolone acetonide 0.1 % topical cream 1 applic topical DAILY PRN Skin Irritation ASK your surgeon for instructions celecoxib 200 mg capsule (Celebrex) 200 mg PO QAM STOP taking 24 hours before surgery clindamycin phosphate 1 % lotion 1 applic topical DAILY PRN Skin Irritation triamcinolone acetonide 0.1 % topical cream 1 applic topical DAILY PRN Skin Irritation DO NOT take the morning of surgery multivitamin 1 tab PO DAILY Take morning of surgery With a small sip of water, OTHERWISE NOTHING TO EAT OR DRINK AFTER MIDNIGHT: buspirone 10 mg tablet 10 mg PO QAM fluticasone propionate 50 mcg/actuation nasal spray,suspension (Flonase Allergy Relief) 1 spray intranasal BID sertraline 50 mg tablet (Zoloft) 50 mg PO QAM tramadol 50 mg tablet (Ultram) 50 mg PO BID Pain acetaminophen 500 mg capsule 1,000 mg PO TID levothyroxine 88 mcg tablet 88 mcg PO QAM metoprolol succinate 25 mg tablet,extended release 24 hr 25 mg PO QAM pantoprazole 20 mg tablet,delayed release 20 mg PO QAM Take evening before surgery atorvastatin 20 mg tablet (Lipitor) 20 mg PO HS clonidine HCl 0.1 mg tablet (Catapres) 0.1 mg PO HS fluticasone propionate 50 mcg/actuation nasal spray,suspension (Flonase Allergy Relief) 1 spray intranasal BID tramadol 50 mg tablet (Ultram) 50 mg PO BID Pain acetaminophen 500 mg capsule 1,000 mg PO TID Other Notes If you have any questions please call us at [phone] or [phone] or [phone] or [phone]
--- NOTE | 2025-02-18 16:00 | Anesthesiology Consultation ---
Date of Service February 18, 2025 Assessment & Plan (1) Encounter for pre-operative examination: - Infectious disease screening: Per assessment on 02/18/25- No known recent infectious disease contacts or current infectious disease symptoms. - Outpatient joint assessment: Pt currently scheduled for inpatient pathway. If surgeon requests review for outpatient joint pathway, patient is an acceptable candidate for outpatient joint program from anesthesia standpoint pending surgeon's office assessment that patient is motivated, has good support and completes Same Day Joint Program preop requirements. - Acceptable risk for surgery pending surgeon-ordered PCP preop evaluation (S, appt 02/20). Chart Review Chart Review: Patient seen in Pre Admission Testing Teaching & Discussion Pre-Anesthesia Teaching/Discussion Notes: Instructed NPO after midnight before surgery,except medications with 15 cc of water. Medication instructions provided according to the PAT guidelines. History Surgery Operation Date: 03/18/25 08:50 Proposed Procedures p Left Total Knee Arthroplasty - Tim Jain MD Height/Weight Height: 5 ft 1 in Weight: 78.5 kg Allergies Allergy/AdvReac Type Severity Reaction Status Date / Time No Known Allergies Allergy Verified 02/13/25 10:20 Medications Home Medications Medication Instructions Recorded Confirmed Last Taken atorvastatin 20 mg tablet (Lipitor) 20 mg PO HS 10/12/19 02/13/25 10/11/19 buspirone 10 mg tablet 10 mg PO QAM 10/12/19 02/13/25 10/12/19 clonidine HCl 0.1 mg tablet 0.1 mg PO HS 10/12/19 02/13/25 10/11/19 (Catapres) fluticasone propionate 50 1 spray intranasal BID 10/12/19 02/13/25 10/12/19 mcg/actuation nasal spray,suspension (Flonase Allergy Relief) sertraline 50 mg tablet (Zoloft) 50 mg PO QAM 10/12/19 02/13/25 10/12/19 tramadol 50 mg tablet (Ultram) 50 mg PO BID Pain 10/12/19 02/13/25 10/12/19 acetaminophen 500 mg capsule 1,000 mg PO TID 02/13/25 02/13/25 Unknown celecoxib 200 mg capsule (Celebrex) 200 mg PO QAM 02/13/25 02/13/25 Unknown clindamycin phosphate 1 % lotion 1 applic topical DAILY PRN Skin 02/13/25 02/13/25 Unknown Irritation levothyroxine 88 mcg tablet 88 mcg PO QAM 02/13/25 02/13/25 Unknown metoprolol succinate 25 mg 25 mg PO QAM 02/13/25 02/13/25 Unknown tablet,extended release 24 hr multivitamin 1 tab PO DAILY 02/13/25 02/13/25 Unknown pantoprazole 20 mg tablet,delayed 20 mg PO QAM 02/13/25 02/13/25 Unknown release triamcinolone acetonide 0.1 % 1 applic topical DAILY PRN Skin 02/13/25 02/13/25 Unknown topical cream Irritation Past Medical History Medical History Anxiety and depression Chronic back pain Dyslipidemia GERD (gastroesophageal reflux disease) History of cardiac murmur Echo 07/2022: No significant valvular disease History of supraventricular tachycardia SVT hx per records, taking metoprolol Hypertension Hypothyroidism Latent tuberculosis "I took an antibiotic for 3 months from the health department so it wouldn't become active" 5+ years ago per patient Exercise / Class Metabolic Activity II 4-5 Yardwork/Stairs/Walk up hill Past Family History Family History Mother Coronary heart disease Hypertension Grandfather (Paternal) Diabetes Stroke Past Surgical History Surgical History H/O colonoscopy History of esophagogastroduodenoscopy (EGD) with dilation (2019) History of tooth extraction Past Anesthesia History No Hx of Anesthesia Complications and No Family Hx of Anesthesia Complications History of PONV No Hx of PONV and No Hx of Motion Sickness Social History Smoking Status: Never smoker Do You Dip or Chew Tobacco: No Hx Alcohol Use: No Hx Substance Use: No substance use type: does not use Review of Systems Rare palpitations. Patient denies chest pain, shortness of breath, dyspnea on exertion, fever, chills, cough, wheezing. Physical Exam Vital Signs BP 151/95 P 65 TEMP 97.5 SP02 96%RA RESP 16 Physical Full cervical extension range of motion. Full TMJ range of motion. TMD > 3.5 finger breaths Mallampati Score III Dentition: intact, + caps (lower front) Lungs: clear throughout to auscultation Cardiac: regular rate and rhythm, no murmurs noted Spine: normal Carotid arteries: negative bruit Extremities: no LE edema Lab Results Anesthesia Preop Results Results Anesthesia Widget: WBC 6.85 K/ul (4.8-10.8) 02/18/25 Hgb 15.6 g/dL (12.0-16.0) 02/18/25 Hct 45.9 % (37.0-47.0) 02/18/25 Plt 231 K/uL (130-400) 02/18/25 Na 140 mmol/L (136-145) 02/18/25 K 4.1 mmol/L (3.5-5.1) 02/18/25 Cl 106 mmol/L (98-107) 02/18/25 CO2 27 mmol/L (21-32) 02/18/25 BUN 20 mg/dl (6-23) 02/18/25 Creat 0.64 mg/dl (0.6-1.2) 02/18/25 Glucose Level 94 mg/dl (70-99(Fasting)) 02/18/25 PT 10.6 Seconds (9.0-12.0) 02/18/25 PTT 25 Seconds (21-31) 02/18/25 INR 1.0 (0.9-1.1) 02/18/25 Urine Color Yellow 02/18/25 Urine Appearance Clear (Clear) 02/18/25 Urine pH 5.0 (4.5-7.5) 02/18/25 Urine Specific [place] 1.029 (1.000-1.030) 02/18/25 Urine Protein Negative (Negative) 02/18/25 Urine Glucose (UA) Negative (Negative) 02/18/25 Urine Ketones Negative (Negative) 02/18/25 Urine Blood Negative (Negative) 02/18/25 Urine Nitrite Negative (Negative) 02/18/25 Urine Bilirubin Negative (Negative) 02/18/25 Urine Urobilinogen Negative (Negative) 02/18/25 Urine Leukocyte Esterase Trace (Negative) H 02/18/25 Urine WBC (Auto) 0-5 /hpf (0-5) 02/18/25 Urine RBC (Auto) 0-2 /hpf (0-2) 02/18/25 Urine Hyaline Casts (Auto) 0-2 /lpf (0-2) 02/18/25 Urine Epithelial Cells (Auto) 3-5 /hpf (0-2) H 02/18/25 Urine Bacteria (Auto) None Seen (None Seen) 02/18/25 Blood Type O Negative 02/18/25 Antibody Screen NEGATIVE 02/18/25 Testing Electrocardiogram Date: 02/18/25 SB at 59bpm. "Otherwise normal ECG" Chest X-Ray Date: 02/18/25 FINDINGS: Lungs: Both lung catsaneda are clear with no evidence of nodules, infiltrates or mass noted. Diaphragms: Unremarkable. Pleura: No effusions or pneumothorax are identified. Heart: Heart size and its configuration appear to be within normal limits. Aorta: Unremarkable. Pulmonary arteries: Unremarkable. [place]: Unremarkable. Osseous structures: Normal mineralization of the visualized bony structures. IMPRESSION: 1. No active cardiopulmonary disease. No other abnormalities noted. 2. Stable on comparison. Echocardiogram Date: 07/25/22 LVEF 60 to 64%. LV wall motion is normal. Grade 1 diastolic dysfunction. No significant valvular disease. Stress Test Date: 10/13/19 Nonischemic exercise stress echo. Average exercise tolerance for age. 6 METS. 85% MPHR. EF 60-65%. No significant valvular disease.
--- NOTE | 2025-03-18 05:23 | History & Physical Bridge Note ---
Date of Service March 18, 2025 History & Physical Bridge Note I have examined the patient, reviewed the History & Physical and in the interval since the performance of the History & Physical I have noted the following changes of clinical significance:consent and site verified.highlighted risks of VTE/infection and stiffness again. no changes noted
[~2025-03-18 06:45] MED LIST changes: -ALPR-411 PO; -BCPILLS PO; +BUPIVACAINE 0.25% PF 30 ML VIAL ONE; +BUPIVACAINE 0.5 % 5 MG/1 ML PF 10ML VIAL ONE; -LVXUNK
[2025-03-18] MEDS ORDERED: MIDAZOLAM HCL 1 MG/ML 2ML VIAL ONE (07:31)
[2025-03-18] MEDS ORDERED: PROPOFOL IV EMULSION 10 MG/ML 20 ML VIAL IV ONE (07:32)
[2025-03-18] MEDS ORDERED: LIDOCAINE 2% 2 ML VIAL/AMP(20MG/ML) INFIL ONE (07:32)
[2025-03-18] MEDS: LR 60ML/HR IV SCH (07:35)
[2025-03-18] MEDS: LR 500ML BOLUS, THEN 15ML/HR IV SCH (07:35)
[2025-03-18] MEDS ORDERED: ONDANSETRON INJ 2 MG/ML 2 ML VIAL IV PRN ×2 (08:08→12:23)
[2025-03-18] MEDS ORDERED: ATROPINE SULFATE 0.1 MG/ML 10ML SYR IV PRN (08:08)
[2025-03-18] MEDS: TRANEXAMIC ACID 1,000 MG **IV Pre-op IV SCH (09:00)
[2025-03-18] MEDS ORDERED: ONDANSETRON INJ 2 MG/ML 2 ML VIAL ONE (09:05)
[2025-03-18] MEDS: ROPIV 0.5% 246mg, Ketorolac 30mg, EPINEPHrine 0.5mg in NSS INFIL SCH (09:47)
[2025-03-18] MEDS: ORTHO JOINT ANESTHETIC ONE (09:47)
--- NOTE | 2025-03-18 10:38 | Post Operative Brief Note ---
Immediate Post Op Note Date of Surgery March 18, 2025 Pre & Post Diagnosis Operation Date: 03/18/25 08:50 <No data on this case meets the specified criteria> Osteoarthritis left knee pre and postop diagnosis same I identified the patient and participated in the time-out.: Yes Procedure Operation Date: 03/18/25 08:50 <No data on this case meets the specified criteria> Cemented left knee replacement Surgeon Tim Jain MD [employer] Cutter yonathan no resident or fellow available Estimated Blood Loss 50 Findings Consistent with Post-Op Diagnosis Grade 4 medial disease grade 4 patellofemoral disease Fluids 700 cc Complications None
--- NOTE | 2025-03-18 10:41 | Operative Report ---
Post Operative Report Pre & Post Diagnosis Operation Date: 03/18/25 08:50 <No data on this case meets the specified criteria> Osteoarthritis left knee pre and postop diagnosis same I identified the patient and participated in the time-out.: Yes Procedure Operation Date: 03/18/25 08:50 <No data on this case meets the specified criteria> Cemented left total knee replacement Surgeon Tim Jain MD Coremaking Machine Setter Guillermo no resident or fellow available Estimated Blood Loss 50 Findings Consistent with Post-Op Diagnosis Grade 4 medial disease grade 4 patellofemoral disease Fluids 700 cc Specimens Bone pathology Drains None Complications None Indications Severe pain failed conservative management Description of Procedure After the patient was appropriate notified site verified consent verified antibiotics confirmed as being given the left lower extremity was examined revealing no instability she was then sterilely prepped and draped usual routine fashion tourniquet was inflated to 250 mmHg after exsanguination of the limb with a reverse and branch for total of roughly 45 minutes. Midline exposure was utilized parapatellar thyrotomy performed synovectomy completed grade 4 disease noted on the entire medial plateau and medial femur and the patellofemoral joint. The lateral side was relatively well-preserved. Distal femur was then resected 9 mm of proximal tibia 4 mm the extension gap was excellent. The femur was then flexed and measured between a 4 and a 3 was measured for cut 3 there was no notching. Flexion gap was excellent. Box cut was then made a size 3 femur fit well. The tibia was broached and reamed to a size 2 rotating platform tray. The 10 mm spacer gave excellent stability and excellent motion. The patella was then measured and was quite thin so a spacer block was placed in resection was only about 7 mm left about 14 mm of the patella and 35 button seated. It tracked well. Ortho mix was then injected all around the joint including the posterior capsule all elements of the trial elements were removed and then the wound irrigated with Pulsavac soaked in Irrisept for 3 minutes and then the permanent cemented into position tibia femur and patella in that order at 12 minutes the tourniquet deflated at 14 minutes the knee inspected no cement removal was required no major bleeding encountered. EBL was estimated 50 cc or less. After final irrigation and permanent liner was seated the knee was reduced and closed at 40 degrees of flexion using #2 Vicryl 2-0 Vicryl and stainless steel clips. Appropriate dressing was applied patient transferred recovery in satisfactory addition having tolerated the procedure well. Jac was notified [phone]. Summary of implants size 3 left femur size 2 rotating platform tray size 35 patella size 3 x 10 mm rotating platform posterior cruciate substituting insert. This is all ATT UNE DePuy Synthes knee. 2 bags of [place] G cement. DVT PE prophylaxis to start tomorrow. I attest to the content of the Intraoperative Record and any orders documented therein. Any exceptions are noted below.
--- NOTE | 2025-03-18 10:42 | Orthopedic Progress Note ---
Date of Service March 18, 2025 Orthopedic Progress Note Patient underwent total knee replacement cemented. Denies chest pain shortness of breath fever chills nausea vomiting headache. Vital signs are stable she is afebrile. Neurovascular check femoral sciatic nerve is limited by spinal. X-ray pending. notified. Jac. [phone]
--- NOTE | 2025-03-18 10:44 | Discharge Summary ---
Date of Service March 19, 2025 Admission HPI Per Admitting Provider Osteoarthritis left knee 23-hour admission for left total knee replacement Principal Diagnosis Status post left total knee replacement Discharge Data Allergies Allergy/AdvReac Type Severity Reaction Status Date / Time No Known Allergies Allergy Verified 03/18/25 07:09 Vaccinations None Consultations None Procedures Performed Operation Date: 03/18/25 08:50 Actual Procedures p Left Total Knee Arthroplasty, Cemented(Left) - Tim Jain MD Ordered Studies 03/18/25 05:00 US - OR guided needle placemen Routine Bone pathology/ x-ray Hospital Course (1) Status post left knee replacement: Total Time Total Time Spent Total Time Spent (In Minutes): 10 Discharge Plan Discharge Items Patient Disposition: Home - Home Health Services Reason For Visit: Left Knee Osteoarthritis Discharge Diagnosis: Status post left total knee replacement Condition on Discharge: Good Activity: Per Instructions section Lifting: Wait until after follow-up appointment Bathing: Keep incision dry Sexual Activity: Wait until after follow-up appointment Exercise/Sports: Wait until after follow-up appointment Driving/Machine Use: No driving until cleared by orthopedics Weightbearing: Full weightbearing Non-emergency contact: Surgeon Call non-emergency contact if: you have any medication questions, your pain is not controlled, your temperature is above 101, your wound has increased redness, your wound has increased drainage and your wound pain has increased Follow-up/Referrals: [facility] [Non-Staff] - Ori Salinas MD [Primary Care Provider] - Diet: Regular Addtl Attending Provider Instructions: New Medicine: * You will likely be taking one or more of these medications: 1. Percocet - Take, as directed, when you need it, every four to six hours to control your pain. 2. Iron Sulfate - Take 1x each day for the month after surgery to help you replace the blood lost during surgery. 3. Eliquis - Thins your blood to lessen the chance of forming a blood clot. * The most common side effects of pain medicine and iron are nausea and constipation. If nausea or constipation is too much of a problem or if you have any questions about your new medicines or doses, call [facility] at . We will try to help you manage these issues. "VERY IMPORTANT TO READ AND REVIEW" Blood Clots and Blood Thinning Medicine: * You are given Eliquis during the immediate post-operative period to lessen the risk of blood clots forming in your legs and/or lungs. It is usually given for six weeks after surgery. Pain: * The immediate post-operative period after knee replacement surgery is often quite painful. * You are given a prescription for pain medicine. You should take it, as directed, when you need it, especially before physical therapy and before going to bed. Pain that interferes with sleep is very common and can last several months. * You will likely need pain medicine for the first four to six weeks. It will not stop all of the pain. The pain will lessen and as you feel better, you may change to milder pain medicine such as Tylenol. * The most common side effects of pain medicine are nausea and constipation, so don't take more than you need. Physical Therapy: * You will have physical therapy two or three times each week for four to six weeks after your surgery in order to regain your knee range of motion and to retrain your knee to work properly. * It is just as important to make sure you are getting your knee perfectly straight as it is to regain your knee bend. * Taking a pain pill an hour before therapy can help you have a more productive and comfortable therapy session if needed. Home Exercise: * You were shown a series of exercises (heel props, heel slides, etc.) in the hospital. Do these exercises three to four times each day including the exercises you were shown in physical therapy. Walking: * Get up and walk several times each day. For the first four weeks, try not to stand or walk for more than one hour at a time. If you do stand or walk for more than one hour, you will not hurt anything, but your knee and leg will likely swell. * As you feel comfortable, you may change from the walker or crutches to a cane and then to independent walking. SELF CARE INSTRUCTIONS AFTER TOTAL KNEE REPLACEMENT A. You may need to continue a physical therapy program after discharge from the hospital. There are several options available to you. Your doctor will assist you in selecting the best one for you. 1. An out-patient facility 2 to 3 times a week for therapy or home therapy. 2. Continue working on all exercises taught to you in the hospital. Your goals should be to increase bending of your knee to 90 degrees and beyond and to fully straighten your knee. B. You may progress at your own pace from walking with a walker or crutches to a cane; then to no assistive devices. C. Make walking a part of your daily routine. Be up as much as comfortable with rest periods throughout the day. Rest with leg elevation is very important. Use the ice wrap frequently for the first 3-4 weeks. D. There are no restrictions on activities. You may ride in a car, shop, participate in bss solution architect and all social activities. E. Wear the long elastic stockings ([place] hose) 20 hours a day for six weeks after surgery. They can be removed several times a day for laundering and for a shower. F. Do not place a pillow behind your knee when resting. A pillow at your ankle is okay. G. You may return to previous diet. VERY IMPORTANT TO READ AND REVIEW A. Take Eliquis (blood thinning medication) as directed by your doctor. B. There are a few signs you need to watch for after you are home. Call [facility] if you notice any of the followin. Increased severe knee pain. Some pain is expected especially when you exercise. 2. Increased swelling in your leg or knee; pain or swelling of the calf muscle in either lower leg. 3. Any fluid drainage from the incision. 4. Shortness of breath or chest pain. C. Please call [facility] at if you have any concerns or questions about your operation or recovery. The doctor or his nurse will return your call promptly. D. You must take antibiotics before dental work, bladder, bowel or other surgery. Call the office to obtain a prescription at least 2 days prior to your appointment. * CALL IF INCREASED PAIN, REDNESS, DRAINAGE OR FEVER GREATER THAT 101. * Sutures should be removed 12-14 days after surgery unless you are on chronic steroids, then it will be 14-18 days after surgery. Call your doctor if: * Temperature above 101 degrees F. * Pain not relieved by pain medicine ordered. * Increased drainage or redness from incision. * Notify your doctor with any questions or concerns. Take Eliquis 2.5mg 2x per day. Start your dosing this evening. use your walker when ambulating use your knee immobilizer when out of bed today and tomorrow. It can be discontinued entirely on Sunday morning keep your dressings in place through the weekend. They can be changed on Sunday if needed for soiling ice and elevate the knee frequently to reduce pain/swelling MEDICATIONS: * Please take your prescriptions as instructed at your pre-op appointment and/or see medication discharge instructions listed above. * If concerns develop, call your physician's office at . SPECIAL CARE INSTRUCTIONS: * Ice/Elevate as instructed. * Keep dressing clean, dry, intact. * Your surgical extremity may be discolored due to prepping agents used on the skin. A bluish-green tint is a normal variant and should not cause alarm. Call your doctor at [phone] if: * Temperature above 101 degrees * Pain not relieved by pain medicine ordered * There is increased drainage or redness from any incision * You have any unanswered questions, problems or concerns. FOLLOW UP VISIT: * If not already scheduled, please call the office at to schedule a follow-up appointment. Pending Studies at Discharge: Yes Studies:: bone pathology Stand-Alone Forms: My [facility], Smoking Cessation Medications and DC Order Prescriptions: No Action clonidine HCl [Catapres] 0.1 mg tablet 0.1 mg PO HS atorvastatin [Lipitor] 20 mg tablet 20 mg PO HS tramadol [Ultram] 50 mg tablet 50 mg PO BID buspirone 10 mg tablet 10 mg PO QAM fluticasone propionate [Flonase Allergy Relief] 50 mcg/actuation [place],Suspension 1 spray INTRANASAL BID sertraline [Zoloft] 50 mg tablet 50 mg PO QAM pantoprazole 20 mg tablet,delayed release (DR/EC) 20 mg PO QAM levothyroxine 88 mcg tablet 88 mcg PO QAM acetaminophen [Tylenol Extra Strength] 500 mg Capsule 1,000 mg PO TID multivitamin Tablet 1 tab PO DAILY celecoxib [Celebrex] 200 mg Capsule 200 mg PO QAM triamcinolone acetonide 0.1 % Cream 1 applic TOPICAL DAILY PRN (Reason: Skin Irritation) metoprolol succinate 25 mg tablet extended release 24 hr 25 mg PO QAM clindamycin phosphate 1 % Lotion 1 applic TOPICAL DAILY PRN (Reason: Skin Irritation) Admission Data Admit Date/Time: 03/18/25 11:02 Attending Provider: Tim Jain Admit Provider: Tim Jain Primary Care Provider: Ori Salinas
--- NOTE | 2025-03-18 10:56 | Operative Report ---
Post Operative Report Pre & Post Diagnosis Operation Date: 03/18/25 08:50 Pre-Op Diagnosis: Left Knee Osteoarthritis Post-Op Diagnosis: Left Knee Osteoarthritis I identified the patient and participated in the time-out.: Yes Procedure Operation Date: 03/18/25 08:50 Actual Procedures p Left Total Knee Arthroplasty, Cemented(Left) - Tim Jain MD Surgeon GIL Jain MD Eligibility Technician [facility] PAC no resident or fellow available Estimated Blood Loss 50 Findings Consistent with Post-Op Diagnosis see operative report Specimens see operative report Drains none Complications none Disposition Accompanied Patient To Recovery: Yes Indications This 60 year old female presented to the office with complaints of persisting left knee pain. She had tried conservative care measures without improvement. She elected to proceed with surgical invention after being educated about potential risks and outcomes. Preoperative imaging was obtained. Description of Procedure The patient was administered a spinal anesthetic and then taken to the operating room where she was given sedation. She was prepped and draped in the usual sterile fashion. Please see Dr. Jain's operative report for specifics of the procedure. I was present for the entire case from initial patient positioning through final wound closure. Assistance was provided in tissue retraction, hemostasis, trial implant placement, final implant placement, and final wound closure. The patient was taken to the recovery room in satisfactory condition. I attest to the content of the Intraoperative Record and any orders documented therein. Any exceptions are noted below.
--- NOTE | 2025-03-18 11:02 | Orthopedic Progress Note ---
Date of Service March 18, 2025 Orthopedic Progress Note Postop check in the recovery room. Awaiting bed assignment. She denies chest pain shortness of breath fever chills nausea or headache. Vital signs are stable she is afebrile. Neurovascular check is limited by spinal. Wound dressing clean dry. Postop x- rays AP and lateral look excellent. Assessment doing well status post left total knee replacement continue care pathway. Wait for spinal wear off and get her up on her feet.
--- NOTE | 2025-03-18 11:05 | Orthopedic Progress Note ---
Date of Service March 18, 2025 Subjective See previous report. Results & Data Vital Signs (Past 12 Hours) Vital Signs Temp Pulse Resp BP Pulse Ox O2 Del Method 03/18/25 07:58 168/96 H 03/18/25 07:15 36.4 C L 70 18 173/85 H 98 Room Air
--- NOTE | 2025-03-18 11:15 | XRay Report ---
XR knee LT 1 or 2V routine CLINICAL HISTORY: S/P L TKA COMPARISON: Left knee radiographs January 09, 2025. FINDINGS: Alignment of the total left knee arthroplasty is anatomic. There is no periprosthetic frac ture. No unexpected radiopaque foreign bodies. There are skin karen. IMPRESSION: Expected findings following total left knee arthroplasty. ACT 112: Negative or not required by law. Electronically signed by: Olivier Tyson M.D. 03/18/2025 11:13 AM
--- NOTE | 2025-03-18 11:29 | Anesthesiology Progress Note ---
Date of Service March 18, 2025 Anesthesia Post Procedure Vital Signs Vital Signs: Temp Pulse Resp BP BP Pulse Ox O2 Del Method 03/18/25 11:20 36.4 C L 74 18 128/81 95 Room Air 03/18/25 11:10 73 18 137/73 95 Oxymask 03/18/25 11:00 65 15 132/77 95 Oxymask 03/18/25 10:50 36.4 C L 71 17 140/71 96 Oxymask 03/18/25 07:58 168/96 H 03/18/25 07:15 36.4 C L 70 18 173/85 H 98 Room Air O2 Flow Rate 03/18/25 11:20 03/18/25 11:10 5 03/18/25 11:00 5 03/18/25 10:50 5 03/18/25 07:58 03/18/25 07:15 Pain Intensity Left Knee: Pain Intensity: 5 Transfer of Care Handoff Completed per policy Notes Mental Status: alert / awake / arousable Patient Amnestic to Procedure: Yes Nausea / Vomiting: adequately controlled Pain: adequately controlled Airway Patency, RR, SpO2: stable & adequate BP & HR: stable & adequate Hydration State: stable & adequate Neuraxial Anesthesia: was administered and sensory block is resolving Anesthetic Complications: no major complications apparent and Pt Satisfied with anesthetic care
[2025-03-18] MEDS ORDERED: diphenhydrAMINE 50 MG/ML VIAL IV PRN (12:23)
[2025-03-18] MEDS ORDERED: NALOXONE HCL 0.4 MG/1 ML VIAL/CARP IV PRN (12:23)
[2025-03-18] MEDS ORDERED: METOCLOPRAMIDE HCL INJ 5 MG/ML 2 ML VIAL IV PRN (12:23)
[2025-03-18] MEDS ORDERED: MAGNESIUM HYDROXIDE SUSP 30 ML UDC PO PRN (12:23)
[2025-03-18] MEDS ORDERED: ALUMINUM/MAGNESIUM SUSP 30 ML UDC PO PRN (12:23)
[2025-03-18] MEDS ORDERED: NON-FORMULARY MEDICATION (Acetaminophen 500 mg Capsule) PO SCH (14:00)
[2025-03-18] MEDS: KETOROLAC TROMETHAMINE 15 MG/ML VIAL IV SCH (14:06)
[2025-03-18] MEDS: HYDROmorphone INJ 0.5 MG/0.5 ML SYR IV PRN (14:06)
[2025-03-18] MEDS: SODIUM CHLORIDE 0.9% 1,000 ML IV SCH (14:07)
[2025-03-18] MEDS: ACETAMINOPHEN 500 MG TAB PO SCH (15:19)
[2025-03-18] MEDS: ASCORBIC ACID 500 MG TAB PO SCH (17:52)
[2025-03-18] MEDS: FERROUS GLUCONATE 324 MG TAB PO SCH (17:52)
[2025-03-18] MEDS: ATORVASTATIN 20 MG TAB PO SCH (20:42)
[2025-03-18] MEDS: DOCUSATE SODIUM 100 MG CAP PO SCH (20:42)
[2025-03-18] MEDS: SENNA 8.6 MG TAB PO SCH (20:42)
[2025-03-18] MEDS: FLUTICASONE PROPIONATE NA SPR 16 GM BTL NAE SCH (20:43)
[2025-03-18 22:57] VITALS: O2SAT 95
[2025-03-19] MEDS: LEVOTHYROXINE SODIUM 88 MCG TABLET PO SCH (05:36)
--- NOTE | 2025-03-19 06:35 | Orthopedic Progress Note ---
Date of Service March 19, 2025 Assessment & Plan Admission and Anticipated Discharge Date Admission Date: March 18, 2025 Orthopedic Progress Note Postop day #1 status post left total knee replacement. Vital signs are stable she is afebrile. Denies chest pain shortness shortness of breath fever chills. Wound dressing clean dry and intact. Calves nontender. Extension near 0 flexion near 60. Assessment status post total knee replacement doing well discharged to home after PT OT today. Initiate anticoagulation today. Emphasize exercises.
[2025-03-19 07:02] VITALS: BP 117/79; PULSE 69; RESP 17; TEMP 98.6
[2025-03-19 07:39] LABS: Hematocrit (blood only) 37.7 % (37.0-47.0); Hemoglobin 12.8 g/dL (12.0-16.0); Mean Corpuscular Hemoglobin 32.2 pg (25.0-34.0); Mean Corpuscular Volume 94.7 fL (80.0-100.0); Platelet Count 168 K/uL (130-400); RDW Standard Deviation 45.1 fL (36.4-46.3); Red Blood Count 3.98 M/uL (4.20-5.40); White Blood Count 11.85 K/ul (4.8-10.8)
[2025-03-19] MEDS: MULTIVITAMIN TAB PO SCH (08:12)
[2025-03-19] MEDS: METOPROLOL SUCC 25MG EXT REL TAB PO SCH (08:12)
[2025-03-19] MEDS: SERTRALINE HCL 50 MG TABLET PO SCH (08:13)
[2025-03-19] MEDS: busPIRone 5 MG TAB PO SCH (08:13)
[2025-03-19] MEDS: APIXABAN 2.5 MG TAB PO SCH (08:13)
[2025-03-19] MEDS: dexAMETHasone 10 MG in SYRINGE 0 ML IV SCH (08:14)
[2025-03-19 08:17] LABS: Anion Gap 6.0 (3-11); Blood Urea Nitrogen 24.0 mg/dl (6-23); Calcium 9.3 mg/dl (8.6-10.3); Carbon Dioxide 26.0 mmol/L (21-32); Chloride 109.0 mmol/L (98-107); Creatinine Clr Calc Pharmacy 78.8 ml/min; Glucose 132.0 mg/dl (70-99(Fasting)); Potassium 4.1 mmol/L (3.5-5.1); Sodium 141.0 mmol/L (136-145)
--- NOTE | 2025-03-19 08:57 | Orthopedic Progress Note ---
Date of Service March 19, 2025 Assessment & Plan (1) Status post left knee replacement: Plan: The patient was educated regarding today's findings. Conservative care measures were discussed. Her dressings were changed today by me. Aric stocking was applied. Continue to use the knee immobilizer when out of bed today and tomorrow. It can be discontinued entirely on Sunday morning. Ice and elevate the leg frequently to reduce pain and swelling. Continue practicing the heel props, straight leg raises, and range of motion several times per day The patient will start home therapy tomorrow. The postop dressings can be left in place through the weekend. They can be changed on Sunday as needed for soiling. Prescriptions for Eliquis 2.5 mg and Percocet 5/325 mg were sent to her pharmacy. Follow-up with me in 2 weeks as scheduled for staple removal Written discharge instructions were provided. Admission and Anticipated Discharge Date Admission Date: March 18, 2025 Subjective This 60-year-old female is seen today for follow-up on her left knee. She is 1 day status post left total knee arthroplasty. The patient states she is doing well. She has been minimal pain at this time. She has been using oral pain medication throughout the evening. She denies any chest pain, shortness of breath, nausea, vomiting, abdominal pain, or numbness/tingling. She has not been out of bed much. She would like to go home today. No other complaints. Review of Systems Review of Systems: Unchanged from yesterday. Physical Exam Physical Exam: General: Well-developed, well-nourished, middle-aged female, in no acute distress. Laying in bed. Alert and oriented. Skin: Warm and dry with good turgor. Postsurgical dressings are in place on the left knee. Upon removal, she has a mild amount of dried blood on the most inner dressings. There is no active bleeding. Ainsley are intact. Wound edges are well-approximated. No erythema or ecchymosis yet. Mild edema generalized throughout the leg. Mild knee effusion is noted. Musculoskeletal: The patient is able to perform a straight leg raise. She has nearly full terminal extension. Flexion to greater than 60 degrees. Intact motor function of the ankle and toes. Neurologic: Gross sensation is intact across the left leg by soft touch. Peripheral pulses are 2+. Results & Data Vital Signs (Past 12 Hours) Vital Signs Temp Pulse Pulse Resp BP Pulse Ox O2 Del Method 03/19/25 07:01 37.0 C 69 17 117/79 95 Room Air 03/19/25 03:49 36.8 C 70 16 104/65 95 Room Air 03/18/25 22:51 36.8 C 70 16 94/58 L 95 Room Air Laboratory Results CBC obtained this morning shows a white count of 11.85. H&H of 12.8 and 37.7. Platelets are normal at 168,000. PRP obtained this morning shows sodium 141, potassium 4.1, chloride 109, CO2 26. BUN of 24 with creatinine 0.7. Glucose this morning was 132. Normal calcium.
== END 2025-03-19 11:38 | disposition home health service (06) ==
LOC: 3N 06:45 → ASU 06:45